=== PATIENT | male | born 1945 ===

== ENCOUNTER 2016-09-18 09:10 | Inpatient (IN) | payer MEDICARE, OTHER ==
[2016-09-16 15:25] VITALS: BMI 25.1
[~2016-09-18 09:10] MED LIST: DEXAMETHASONE SOD PHOSPHATE 10 MG/ML 1 ML VIAL IV ONE; HEPARIN SODIUM,PORCINE 5,000 UNIT/ML 1 ML VIAL SQ ONE; LIDOCAINE 1% 20 ML VIAL (10MG/ML) FOR IV START INTRADERMA PRN; ONDANSETRON 4 MG/2 ML VIAL IVP ONE
[2016-09-18] MEDS ORDERED: ACETAMINOPHEN IV (For NPO) 1,000 MG in EMPTY BAG 1 BAG IVPB ONE (09:26)
--- NOTE | 2016-09-18 09:26 | P.GSHP ---
History of Present Illness H&P Date: 09/18/16 CHIEF COMPLAINT: Recurrent incisional hernia. HISTORY OF PRESENT ILLNESS: Yazmin Ny is a 71-year-old male who within the last 6 months had an open ventral hernia with immediate recurrence. He had a recent CT of the abdomen/ pelvis that was consistent with incarcerated transverse colon. He is now in for further evaluation and management. He denies any changes in bowel habits at this time. PAST MEDICAL HISTORY: Please see list. PAST SURGICAL HISTORY: Please see list. MEDICATIONS: Please see list. ALLERGIES: Please see list. SOCIAL HISTORY: No illicit drug use FAMILY HISTORY: No reports of Crohn disease or ulcerative colitis. REVIEW OF ORGAN SYSTEMS: Respiratory: History of chronic cough. Has COPD. Musculoskeletal: Joint stiffness. CONSTITUTIONAL: No fevers or chills. HEENT: Denies any trouble with vision, hearing or nosebleeds. No difficulty swallowing. LYMPHATIC: The patient denies any lumps and bumps around the neck. ENDOCRINE: Denies any thyroid disorders. Denies any blood sugar glucose intolerance. CARDIOVASCULAR: Denies any chest pain, palpitations, or recent heart attacks. He has completed cardiac risk assessment. GASTROINTESTINAL: Denies fatty food intolerance. Denies change in bowel habits and gas bloat. GENITOURINARY: Denies any blood in urine or increased urinary frequency. NEUROLOGIC: Denies any numbness or tingling along the distal extremities. No seizure disorders or headaches. PSYCHIATRIC: Denies any depression or suicidal ideation. HEMATOLOGIC: Denies any abnormal bleeding or bruising. BREASTS: Denies any breast lumps, pain or nipple discharge. PHYSICAL EXAM: Patient is a 71-year-old male. Vital signs: T: 97.7 degrees. P: 85, R: 18, BP: 140/85, Ht: 510, Wt: 182 lbs. Abdomen: 8 cm reducible epigastric incisional hernia with recurrence without skin changes. Projection from the abdomen wall is over 6 cm. GENERAL: Well developed and in no acute distress. Pleasant. HEENT: No sclera icterus. Extraocular movements grossly intact. Moist buccal mucosa. Head is atraumatic, normocephalic. Hears conversational speech. No nasal drainage. NECK: Supple without lymphadenopathy. No JV distention. CHEST: Non-labored respirations and equal bilateral excursions. CARDIOVASCULAR: Regular rate and rhythm. Palpable 2+ radial pulses. MUSCULOSKELETAL: No clubbing, cyanosis or edema. NEUROLOGIC: No focal or lateralizing signs. PSYCH: Appropriate affect. Alert and oriented to person, place and time. STUDIES: CT of the abdomen/pelvis was reviewed and was consistent with recurrent ventral hernia involving the transverse colon. ASSESSMENT: 1. Recurrent incisional hernia. 2. Chronic tobacco use. 3. COPD. PLAN: 1. I have discussed with him the risk factors for recurrence of a hernia, including failure of surgical technique as well as body habitus and inherent factors, such as smoking. He has been asked to decrease his tobacco use, however the patient has declined. 2. Increased risk, including removal of the mesh and placement of mesh, were also described. 3. Inpatient hospitalization over night was also described. 4. DVT prophylaxis. 5. Antibiotics prophylaxis. 6. Laparoscopic ventral hernia repair with possibility of open technique was described, however given the caliber and integrity of his tissue, laparoscopic technique and minimally invasive technique were reviewed. 7. Per patients request, he is electing for surgery in September 2016 where he will at least need 4 weeks of recovery with placement of abdominal binder. Past Medical History Past Medical History: COPD, Hyperlipidemia, Osteoarthritis (OA), Prostate Disorder History of Any Multi-Drug Resistant Organisms: None Reported Past Surgical History: Hernia Repair Additional Past Surgical History / Comment(s): bilat inguinal hernia umbilical Past Anesthesia/Blood Transfusion Reactions: No Reported Reaction Past Psychological History: No Psychological Hx Reported Smoking Status: Current every day smoker Past Alcohol Use History: None Reported Past Drug Use History: None Reported - Past Family History Mother Family Medical History: Cancer Additional Family Medical History / Comment(s): stomach Father Family Medical History: Cancer Medications and Allergies Home Medications Medication Instructions Recorded Confirmed Type Alendronate Sodium [Fosamax] 35 mg PO WEEKLY 09/16/16 09/16/16 History Atorvastatin [Lipitor] 20 mg PO DAILY 09/16/16 09/16/16 History Ergocalciferol (Vitamin D2) 50,000 unit PO WEEKLY 09/16/16 09/16/16 History [Vitamin D2] Allergies Allergy/AdvReac Type Severity Reaction Status Date / Time Penicillins Allergy Unknown Verified 09/16/16 15:04 Childhood
[2016-09-18] MEDS: LACTATED RINGERS 1,000 ML IV SCH (10:24)
[2016-09-18] MEDS ORDERED: BUPIVACAIN-EPI 0.25%-1:200,000 30 ML VIAL SQ ONE (10:49)
[2016-09-18] MEDS ORDERED: fentaNYL (PF) 50 MCG/ML 2 ML AMP ONE (10:52)
[2016-09-18] MEDS ORDERED: SUCCINYLCHOLINE CHLORIDE 100 MG/5 ML SYR IV ONE (10:52)
[2016-09-18] MEDS ORDERED: ROCURONIUM BROMIDE 10 MG/ML 10 ML VIAL IV ONE (10:52)
[2016-09-18] MEDS ORDERED: MIDAZOLAM 2 MG/2 ML VIAL ONE (10:52)
[2016-09-18] MEDS ORDERED: NEOSTIGMINE 1 MG/ML 10 ML VIAL ONE (10:52)
[2016-09-18] MEDS ORDERED: PROPOFOL 10 MG/ML 20 ML VIAL IV ONE (10:52)
[2016-09-18] MEDS ORDERED: GLYCOPYRROLATE 0.2 MG/ML 2 ML VIAL ONE (10:52)
[2016-09-18] MEDS ORDERED: LIDOCAINE 1% INJ 10MG/ML (20 ML MDV) ONE (10:52)
[2016-09-18] MEDS: ceFAZolin 2 GM in SODIUM CHLORIDE 0.9% 100 ML IVPB ONE ×2 (10:56→11:08)
[2016-09-18 11:29] LABS: Basophils # (A) 0.1 k/uL (0-0.2); Basophils % (A) 1 %; CH 32.1; Eosinophils % (A) 1 %; HCT 44.6 % (39.0-53.0); HDW 2.73; HGB 15.3 gm/dL (13.0-17.5); Luc # (Auto) 0.16; Luc % (Auto) 2; Lymphocytes # (A) 1.9 k/uL (1.0-4.8); Lymphocytes % (A) 20 %; MCH 31.7 pg (25.0-35.0); MCHC 34.4 g/dL (31.0-37.0); MCV 92.1 fL (80.0-100.0); Mean Platelet Volume 8.1; Monocytes # (A) 0.5 k/uL (0-1.0); Monocytes % (A) 5 %; Neutrophils # (A) 6.7 k/uL (1.3-7.7); Neutrophils % (A) 72 %; RBC 4.84 m/uL (4.30-5.90); RDW 13.5 % (11.5-15.5); WBC 9.3 k/uL (3.8-10.6); WBC (Perox) 9.28
[2016-09-18 11:43] LABS: Anion Gap 9 mmol/L; Blood Urea Nitrogen 11 mg/dL (9-20); Calcium 8.5 mg/dL (8.4-10.2); Carbon Dioxide 27 mmol/L (22-30); Chloride 107 mmol/L (98-107); Glucose 104 mg/dL (74-99); Non-African American GFR(MDRD) >60 (>60 ml/min/1.73 sqM); Potassium 4.5 mmol/L (3.5-5.1); Sodium 143 mmol/L (137-145)
[2016-09-18] MEDS ORDERED: LACTATED RINGERS 1,000 ML IV ONE (12:15)
[2016-09-18] MEDS ORDERED: NALOXONE 0.4 MG/ML 1 ML VIAL IV PRN (12:44)
[2016-09-18] MEDS ORDERED: ONDANSETRON 4 MG/2 ML VIAL IVP PRN (12:44)
--- NOTE | 2016-09-18 12:44 | P.PCN ---
Preoperative Diagnosis: Recurrent incarcerated incisional hernia epigastrium, COPD Postoperative Diagnosis: Same, foreign body intra-abdominal of recurrent incarcerated incisional hernia incorporating transverse colon Procedure(s) Performed: 1. Laparoscopic recurrent incarcerated incisional ventral hernia 6 cm with a 10 x 15 cm mesh 2. Open removal of foreign body, suspected mesh 3. Complex closure anterior abdominal wall, 13 x 10 cm, epigastrium Anesthesia: GETA, local (60 mL) Surgeon: Olivia Rao Estimated Blood Loss (ml): 30 Pathology: other (Foreign body, incarcerated hernia sac) Condition: stable Disposition: floor Operative Findings: Incarcerated transverse colon, completely failed mesh repair from prior operation.
[2016-09-18] MEDS: HYDROmorphone 1 MG/ML 1 ML SYRINGE IVP PRN ×3 (12:54→13:15)
[2016-09-18] MEDS ORDERED: HYDROcodone/APAP 5-325MG 1 EACH TAB PO ONE ×2 (14:52→16:07)
[2016-09-18] MEDS ORDERED: METOCLOPRAMIDE 5 MG/ML 2 ML VIAL IVP PRN (18:48)
--- NOTE | 2016-09-18 19:37 | P.OP ---
Date of Procedure: 09/18/16 Description of Procedure: SURGEON: OLIVIA RAO MD PREOPERATIVE DIAGNOSIS: 1. Recurrent incisional ventral hernia, incarcerated, epigastrium. 2. Chronic obstructive pulmonary disease, untreated. 3. History of abnormal EKG. 4. Hyperkeratosis. 5. Chronic tobacco use. 6. Hyperlipidemia. 7. Osteoporosis. POSTOPERATIVE DIAGNOSIS: 1. Recurrent incisional ventral hernia, incarcerated, epigastrium, 6 cm involving transverse colon. 2. Chronic obstructive pulmonary disease, untreated. 3. History of abnormal EKG. 4. Hyperkeratosis. 5. Chronic tobacco use. 6. Hyperlipidemia. 7. Osteoporosis. 8. Foreign body, intra-abdominal, epigastrium. 9. Oxygen desaturation. OPERATION: 1. Laparoscopic lysis of adhesions over 30 minutes. 2. Laparoscopic repair of recurrent incarcerated incisional ventral hernia with Bard Ventralight ST mesh 10 x 15 cm. 3. Open removal of foreign body along the epigastrium. 4. Complex closure of abdominal wall excision, 13 cm, epigastrium. ANESTHESIA: General with 60 mL 0.25% Marcaine with epinephrine. ESTIMATED BLOOD LOSS: 30 mL SPECIMENS REMOVED: None. COMPLICATIONS: None. INDICATIONS: The patient is a 71-year-old male who presents with Recurrent incarcerated incisional hernia which was repaired less than 6 months ago by another provider. Anastomotic imaging demonstrated incarceration of transverse colon. He was counseled on tobacco cessation. He completed previous cardiac risk assessment. Benefits and risks were described including but not limited to possibility of open technique, infection, bleeding, need for further surgery, injury to bowel, and placement of mesh. DESCRIPTION: Patient was brought into the operating room, laid in supine position. After general induction, abdomen was prepped and draped in standard sterile fashion, including placement of Ioban draping. A Mayer catheter was placed. Prior to incision, a timeout protocol was performed with the surgical team, confirming the patient's name, procedure to be performed, including preoperative medications, for which the patient received Ancef 2 grams IV antibiotic. A 5 mm transverse incision was made along the left upper abdomen. A 0-degree 5 mm laparoscopic trocar entry with insufflation. Moderate peritoneal adhesions were found along epigastrium. Another 5-mm port was placed along the infraumbilical area. A separate 5-mm port was placed along the left lower quadrant. All ports were placed under direct visualization. Diagnostic laparoscopy demonstrated no injury to bowel, viscera or mesentery. Using blunt dissection with a Kitner and sharp dissection with an endoscopic scissor, the peritoneal adhesions were carefully gently taken down for over 30 minutes of the case. No enterotomies or colotomies had occurred during the case. Careful attention was brought to the anterior abdominal wall whereby defect of 6 cm along the epigastrium was identified with with incarcerated omental tissue and retracted failed mesh repair. The omental tissue was reduced. A 15 x [address] mesh was selected to address the hernia defect. The 5 mm port along the left upper quadrant was exchanged for a 11 mm port. The mesh was prepared where 0 Prolene stitch was placed along the epicenter of the 10 x [address] mesh. To excise the foreign body of the retracted mesh from the abdominal wall, a cut down along the epigastrium over his previous cicatrix was performed after anesthetizing the skin with local anesthetic. A #10 blade was used to enter into the abdominal cavity. The mesh was identified and actually failed with sutures along the fascial plane. The mesh was resected using electro-Bovie cautery. Next the fascial edges were freshened using electro-Bovie cautery with at least a 4 cm overlap circumferentially. Hemostasis was checked using electro-Bovie cautery. Next, the Ventralight ST mesh was placed into the abdominal cavity via the fascial defect. Given the extremely large size of the hernia, the fascial as were reapproximated using running sutures of #2 Ethibonds. Fascial plication was performed with another layer of #2 Ethibonds for complete closure of the hernia defect. The abdominal wall and saphenous tissue were further mobilized and undermined for complete skin closure and soft tissue closure. Pneumoperitoneum was reinsufflated into the abdomen to complete the laparoscopic ventral hernia repair portion of the case. On the periphery, Sorbafix was placed including along the body of the mesh leaving 1 cm spacing of the edge of the mesh. Final intra-abdominal images were obtained. The 11 mm port site was closed using a Wilfrid-Montero and an 0 Vicryl. All instruments and pneumoperitoneum were removed from the abdominal cavity. Incisions were reapproximated using 4-0 Monocryl in an interrupted fashion. Dermabond was applied to the skin after placing 60 mL 0.25% Marcaine with epinephrine. An abdominal binder was placed. Mayer catheter was discontinued. At the end of the procedure, needle, sponge and instrument count were verified correct by the surgical assistant certified. The patient had tolerated the procedure well and was awakened from anesthesia without sequelae. Intraoperative films were shared with the patient's family who were please with the level of care. With this history of chronic oxygen desaturation including untreated COPD, the patient was admitted for further pulmonary evaluation. FINDINGS: 1. Incarcerated recurrent incisional ventral hernia of upper lower midline, 6 cm. Plan - Discharge Summary New Discharge Prescriptions: Hydrocodone/Acetaminophen [[place] 5-325] 1 - 2 each PO Q6HR PRN #30 tab PRN Reason: Pain Discharge Medication List Alendronate Sodium [Fosamax] 35 mg PO WEEKLY 09/16/16 [History] Atorvastatin [Lipitor] 20 mg PO DAILY 09/16/16 [History] Ergocalciferol (Vitamin D2) [Vitamin D2] 50,000 unit PO WEEKLY 09/16/16 [History ] Hydrocodone/Acetaminophen [[place] 5-325] 1 - 2 each PO Q6HR PRN #30 tab 09/18/16 [Rx] Follow up Appointment(s)/Referral(s): Olivia Rao MD [STAFF PHYSICIAN] - 09/22/16 1:00 pm Patient Instructions/Handouts: *Surgery [facility] - (Anesthesia) Discharge Instructions Outpatient Surgery, Abdominal Binder (DC), Ventral Hernia Repair ( DC) Activity/Diet/Wound Care/Special Instructions: Do not remove dressings. Do not remove binder except for showering. No bath tub soaks. Wear abdominal binder on and all times. No lifting over 4 pounds in 4 weeks. Discharge Disposition: HOME SELF-CARE
[2016-09-18] MEDS ORDERED: LEVALBUTEROL NEB 0.31 MG/3 ML AMP INHALATION SCH (20:00)
--- NOTE | 2016-09-18 22:14 | XR ---
EXAMINATION TYPE: XR chest 2V DATE OF EXAM: 09/18/2016 9:52 PM COMPARISON: NONE HISTORY: Hypoxemia TECHNIQUE: Frontal and lateral views of the chest are obtained. FINDINGS: There is increased AP diameter of the chest suggesting underlying COPD. Heart is perhaps b orderline enlarged, patient is rotated. There is patchy bibasilar density present. No evident pneumot horax or pleural effusion. Suspect underlying interstitial lung disease. Pulmonary vascularity and hi la within normal limits. Kyphosis is marked. Bones are osteoporotic. IMPRESSION: Basilar atelectasis, correlate to exclude pneumonia. Difficult to exclude volume overloa d, pulmonary venous hypertension and interstitial edema.
[2016-09-18] MEDS: HEPARIN SODIUM,PORCINE 5,000 UNIT/ML 1 ML VIAL SQ SCH (22:16)
[2016-09-18] MEDS: HYDROcodone/APAP 5-325MG 1 EACH TAB PO PRN (22:24)
[2016-09-19 01:57] VITALS: TEMP 97
[2016-09-19] MEDS: LACTATED RINGERS 1,000 ML IV SCH (06:02)
[2016-09-19] MEDS: HYDROcodone/APAP 5-325MG 1 EACH TAB PO PRN ×2 (07:06→13:19)
[2016-09-19] MEDS: HEPARIN SODIUM,PORCINE 5,000 UNIT/ML 1 ML VIAL SQ SCH (07:07)
[2016-09-19 09:36] VITALS: BP 162/74; RESP 16
--- NOTE | 2016-09-19 12:12 | P.CNPUL ---
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 Patient was recently seen by Dr. Emanuel for recurrent incisional ventral hernia incarcerated, and he underwent laparoscopic repair. The surgery included laparoscopic lysis of adhesions, laparoscopic repair of incarcerated incisional ventral hernia, open removal of foreign body along the epigastrium/ mesh complex closure of abdominal wall excision. Postoperatively, patient was noted to have postoperative atelectasis, and interstitial changes of the lungs, however the patient had no significant pulmonary symptoms in spite of his severe underlying lung disease including COPD and interstitial lung disease. Considering the finding on the chest x-ray and considering the patient's history , I was asked to see him on consultation. Presently the patient denies any cough no wheezing no shortness of breath. Review of Systems Constitutional: No fever no chills no weight loss no aches and pains. HEENT: Negative Pulmonary: No cough no wheezing no shortness of breath Cardiac: No chest pain no palpitations GI: Refer to HPI. Genitourinary: No dysuria frequency urgency Musculoskeletal: No aches and pains Neurologic: No headaches no blurred vision no dizziness. Endocrine no symptoms of hypothyroidism, hyperthyroidism or diabetes. Psychiatric: No symptoms of depression. Hematologic: No anemia, no bleeding, no thromboembolic disease. Past Medical History Past Medical History: COPD, Hyperlipidemia, Osteoarthritis (OA), Prostate Disorder History of Any Multi-Drug Resistant Organisms: None Reported Past Surgical History: Hernia Repair Additional Past Surgical History / Comment(s): bilat inguinal hernia umbilical Past Anesthesia/Blood Transfusion Reactions: No Reported Reaction Past Psychological History: No Psychological Hx Reported Smoking Status: Current every day smoker Past Alcohol Use History: None Reported Past Drug Use History: None Reported - Past Family History Mother Family Medical History: Cancer Additional Family Medical History / Comment(s): stomach Father Family Medical History: Cancer Medications and Allergies Home Medications Medication Instructions Recorded Confirmed Type Alendronate Sodium [Fosamax] 35 mg PO FR 09/16/16 09/18/16 History Atorvastatin [Lipitor] 20 mg PO DAILY 09/16/16 09/18/16 History Ergocalciferol (Vitamin D2) 50,000 unit PO FR 09/16/16 09/18/16 History [Vitamin D2] Allergies Allergy/AdvReac Type Severity Reaction Status Date / Time Penicillins Allergy Unknown Verified 09/18/16 10:49 Childhood Physical Exam Vitals: Vital Signs Temp Pulse Pulse Resp BP Pulse Ox 09/19/16 07:41 86 09/19/16 07:00 97.0 F L 89 16 162/74 90 L 09/19/16 01:56 97.0 F L 86 22 134/67 97 09/18/16 21:00 86 22 09/18/16 20:38 98.7 F 89 18 144/89 92 L 09/18/16 18:31 87 16 115/69 94 L 09/18/16 17:47 83 16 109/57 95 09/18/16 17:33 95 09/18/16 17:16 84 18 112/63 92 L 09/18/16 17:12 91 L 09/18/16 17:11 86 L 09/18/16 16:50 77 16 122/60 91 L 09/18/16 16:16 89 16 139/82 91 L 09/18/16 15:43 88 16 100/58 93 L 09/18/16 15:21 86 16 99/62 93 L 09/18/16 15:05 87 16 104/67 93 L 09/18/16 14:45 85 18 118/67 90 L 09/18/16 14:28 84 18 110/62 94 L 09/18/16 14:15 84 18 122/64 95 09/18/16 14:00 89 18 120/65 93 L 09/18/16 13:45 87 16 1118/66 92 L 09/18/16 13:30 85 16 122/69 95 09/18/16 13:15 92 18 127/72 95 09/18/16 13:00 84 18 129/71 95 09/18/16 12:47 97.4 F L 86 20 163/87 99 Intake and Output 09/18/16 09/19/16 09/19/16 22:59 06:59 14:59 Intake Total 680 Output Total 75 500 800 Balance -75 180 -800 Intake: Intake, IV Titration 140 Amount Lactated Ringers 1,000 ml 140 @ 20 mls/hr IV .Q24H [facility] Rx#:[id number] Oral 540 Output: Urine 75 500 800 Other: Voiding Method Urinal # Voids 3 Weight 81.647 kg GENERAL: Revealed a 71-year-old white male in no distress. HEENT: No sclera icterus. Extraocular movements grossly intact. Moist buccal mucosa. Head is atraumatic, normocephalic. Hears conversational speech. No nasal drainage. NECK: Supple without lymphadenopathy. No JV distention. CHEST: Diminished breath sound bilaterally no crackles or rhonchi or wheezes. CARDIOVASCULAR: Regular rate and rhythm. Palpable 2+ radial pulses. MUSCULOSKELETAL: Mild clubbing, no cyanosis or edema. NEUROLOGIC: No focal or lateralizing signs. PSYCH: Appropriate affect. Alert and oriented to person, place and time. Results - Laboratory Findings CBC and BMP: 09/18/16 10:24 09/18/16 10:24 Abnormal lab findings: Abnormal Labs 09/18/16 10:24 Glucose 104 H - Diagnostic Findings Chest x-ray: image reviewed (Chest x-ray was reviewed, there is evidence of bibasilar atelectasis, and suspect mild interstitial lung disease.) Assessment and Plan Plan: Impression: 1: Postoperative atelectasis 2 suspect severe COPD 3 suspect interstitial lung disease/rheumatoid lungs 4 postoperative hypoxemia and desaturation secondary to above. 5 status post laparoscopic repair of recurrent incarcerated incisional hernia. And removal of mesh. Recommendation: Patient will be placed on bronchodilators, incentive spirometry , O2 and titrate accordingly to keep his saturation above 89%, continue DVT and GI prophylaxis, must have outpatient follow-up with me in [place]. If the patient requires to be on home O2 before discharge, that could be arranged for. We'll continue to follow. Time with Patient: Greater than 30
--- NOTE | 2016-09-19 13:41 | P.DS ---
Providers Date of admission: 09/18/16 12:51 Expected date of discharge: 09/19/16 Attending physician: Olivia Rao Consults: 09/18/16 18:48 Consult Physician Routine Consulting Provider: Manju Askew Consult Reason/Comments: COPD, hypoxia poorly controlled Do you want consulting provider notified?: Yes Primary care physician: Stated None - Discharge Diagnosis(es) (1) Recurrent incisional hernia with incarceration Current Visit: Yes Status: Acute (2) COPD (chronic obstructive pulmonary disease) Current Visit: Yes Status: Acute (3) Tobacco abuse Current Visit: Yes Status: Acute (4) Oxygen desaturation Current Visit: Yes Status: Acute Hospital Course: The patient is a 71-year-old gentleman who underwent a repair of recurrent incisional ventral hernia. Postoperatively, he had chronic oxygen desaturation. He has untreated COPD with chronic tobacco abuse. Given his symptoms, he was admitted to undergo pulmonary evaluation. His pain was fairly controlled. Prior to discharge, he was tolerating diet. Discharge instructions including abdominal binder was reviewed. Follow up with transitional living specialist advised. Pertinent Studies: Chest x-ray confirming COPD Procedures: Laparoscopic repair of recurrent incarcerated incisional ventral hernia, 6 cm with mesh Open resection of foreign body epigastrium. Laparoscopic lysis of adhesions. Patient Condition at Discharge: Stable Plan - Discharge Summary New Discharge Prescriptions: Hydrocodone/Acetaminophen [[place] 5-325] 1 - 2 each PO Q6HR PRN #30 tab PRN Reason: Pain Discharge Medication List Alendronate Sodium [Fosamax] 35 mg PO FR 09/16/16 [History] Atorvastatin [Lipitor] 20 mg PO DAILY 09/16/16 [History] Ergocalciferol (Vitamin D2) [Vitamin D2] 50,000 unit PO FR 09/16/16 [History] Hydrocodone/Acetaminophen [[place] 5-325] 1 - 2 each PO Q6HR PRN #30 tab 09/18/16 [Rx] Follow up Appointment(s)/Referral(s): Manju Askew MD [STAFF PHYSICIAN] - 1 Week Olivia Rao MD [STAFF PHYSICIAN] - 09/22/16 1:00 pm Patient Instructions/Handouts: *Surgery [facility] - (Anesthesia) Discharge Instructions Outpatient Surgery, Abdominal Binder (DC), Ventral Hernia Repair ( DC) Activity/Diet/Wound Care/Special Instructions: Do not remove dressings. Do not remove binder except for showering. No bath tub soaks. Wear abdominal binder on and all times. No lifting over 4 pounds in 4 weeks. Discharge Disposition: HOME SELF-CARE
[2016-09-19 14:34] VITALS: PULSE 66
[2016-09-19] MEDS ORDERED: IPRATROPIUM-ALBUTEROL 3 ML NEB INHALATION SCH (16:00)
[2016-09-19] MEDS ORDERED: SYMBICORT 160-4.5 MCG INHALER INHALATION SCH (20:00)
== END 2016-09-19 15:46 | disposition home or self-care (01) | DRG 336 ==
LOC: OR 09:10 → 3SUR 12:51
PROVIDERS: ADMIT Surgery Plastic and Reconstructive Surgery; ATTEND Surgery Plastic and Reconstructive Surgery
PROC: 0WUF4JZ Supplement Abdominal Wall with Synthetic Substitute, Percutaneous Endoscopic Approach (ICD-10-PCS; principal; 2016-09-18 10:45)
PROC: 0WPF4JZ Removal of Synthetic Substitute from Abdominal Wall, Percutaneous Endoscopic Approach (ICD-10-PCS; principal; 2016-09-18 10:45)
PROC: 0DNW4ZZ Release Peritoneum, Percutaneous Endoscopic Approach (ICD-10-PCS; principal; 2016-09-18 10:45)
PROC: 3E0M05Z Introduction of Adhesion Barrier into Peritoneal Cavity, Open Approach (ICD-10-PCS; principal; 2016-09-18 10:45)
DX: K43.0 Incisional hernia with obstruction, without gangrene (principal); J84.9 Interstitial pulmonary disease, unspecified; J44.9 Chronic obstructive pulmonary disease, unspecified; M05.10 Rheumatoid lung disease with rheumatoid arthritis of unspecified site; J98.11 Atelectasis; E78.5 Hyperlipidemia, unspecified; K66.0 Peritoneal adhesions (postprocedural) (postinfection); M81.0 Age-related osteoporosis without current pathological fracture; R09.02 Hypoxemia; Z79.83 Long term (current) use of bisphosphonates; Z79.899 Other long term (current) drug therapy; Z72.0 Tobacco use; Z88.0 Allergy status to penicillin
CPT/HCPCS: 71020; 80048; 85025; 88302; 88304; 93005; 94640